=== PATIENT | female | born 1950 | race Caucasian/White ===

== ENCOUNTER → 2016-04-22 | Outpatient (CLI) | payer OTHER | LOC: FIMAGING 10:32 | PROVIDERS: ATTEND Surgery | DX: D35.1 Benign neoplasm of parathyroid gland (principal); E21.0 Primary hyperparathyroidism | CPT/HCPCS: 78070; A9500 ==

== ENCOUNTER 2016-05-09 08:39 | Day surgery (SDC) | payer OTHER ==
[~2016-05-09 08:39] MED LIST: ceFAZolin 2 GM/DEXTROSE 100 ML IV ONE
[2016-05-09] MEDS ORDERED: LIDOCAINE 1% 5 ML SDV ID PRN (09:04)
[2016-05-09] MEDS ORDERED: LR 1,000 ML IV ONE (09:04)
[2016-05-09] MEDS ORDERED: CEFAZOLIN 2 GM/DEXTROSE/100 ML BAG IV ONE (09:13)
[2016-05-09] MEDS ORDERED: THROMBIN (BOVINE) 5,000 UNIT VIAL TP ONE ×3 (09:23→10:50)
[2016-05-09] MEDS ORDERED: BUPIVACAINE 0.5% 30 ML SDV ONE (09:23)
[2016-05-09] MEDS ORDERED: BUPIVACAINE/EPI 0.5% 30 ML SDV ONE ×2 (09:38→09:49)
[2016-05-09 09:40] LABS: CALCIUM 11.1 ng/dL (8.5-10.4); CREATININE 0.8 mg/dL (0.6-1.0)
[2016-05-09] MEDS ORDERED: HYDROCODONE/APAP 5/325 TAB PO PRN (09:49)
[2016-05-09] MEDS ORDERED: ONDANSETRON 4 MG/2 ML VIAL IVP PRN (09:49)
[2016-05-09 09:50] LABS: PTH INTACT NO MINERALS 178.6 pg/ml (10.8-79.4)
[2016-05-09] MEDS ORDERED: MIDAZOLAM 2 MG/2 ML VIAL ONE (09:51)
[2016-05-09] MEDS ORDERED: HYDROmorphONE/DILAUDID 1 MG/ML SYR IVP PRN (09:56)
[2016-05-09] MEDS ORDERED: OXYCODONE/APAP 5/325 TAB PO PRN (09:56)
[2016-05-09] MEDS ORDERED: ACETAMINOPHEN 325 MG TAB PO PRN (09:58)
[2016-05-09] MEDS ORDERED: 1/2 NS 1,000 ML IV SCH (10:00)
[2016-05-09] MEDS ORDERED: fentaNYL 250 MCG/5 ML INJ ONE (10:10)
[2016-05-09] MEDS ORDERED: PROPOFOL 200 MG/20 ML VIAL ONE (10:11)
[2016-05-09] MEDS ORDERED: PROPOFOL/EMULSION 500 MG/50 ML BOTTLE IV ONE (10:11)
[2016-05-09] MEDS ORDERED: ROCURONIUM 50 MG/5 ML VIAL ONE (10:43)
[2016-05-09] MEDS ORDERED: ONDANSETRON 4 MG/2 ML VIAL ONE (10:43)
[2016-05-09] MEDS ORDERED: LIDOCAINE 2% 5 ML SDV ONE (10:43)
[2016-05-09] MEDS ORDERED: DEXAMETHASONE 4 MG/ML VIAL ONE (10:43)
[2016-05-09] MEDS ORDERED: GLYCOPYRROLATE 0.2 MG/1 ML VIAL ONE ×3 (10:44→11:35)
[2016-05-09] MEDS ORDERED: NEOSTIGMINE METHYLSULFATE 5 MG/5 ML SYR ONE (11:35)
--- NOTE | 2016-05-09 11:40 | POSTOPPROG ---
Post Op Note Date of Operation: 05/09/16 Surgeon: Kip Hopkins Paperback Machine Operator: Gilmar Medel PA-C, TRISH Escoto MS, Mariano Rodriguez PA-C Anesthesiologist: Raine Basurto MD Anesthesia: GET(General Endotracheal) Pre-op Diagnosis: parathyroid adenoma, Post-op Diagnosis: same Indication: hyperparathyroidism,Parathryoid adenoma Procedure: Parathyroidectomy with removal of adenoma
[2016-05-09] MEDS ORDERED: fentaNYL 100 MCG/2 ML INJ ONE (12:32)
[2016-05-09 13:07] LABS: CALCIUM 10.7 mg/dL (8.5-10.4)
--- NOTE | 2016-05-11 18:26 | GOP ---
[f rep st] OPERATIVE REPORT DATE OF OPERATION: 05/09/2016 SURGEON: Kip Hopkins MD DUPLICATOR PUNCH SET UP OPERATOR: Terrence Medel, AMELIA. ANESTHESIA: Raine Basurto M.D. PREOPERATIVE DIAGNOSIS: Hyperparathyroidism. POSTOPERATIVE DIAGNOSIS: Hyperparathyroidism. PROCEDURE PERFORMED: Parathyroidectomy. FINDINGS: The patient was found to have a 450 mg adenoma in the left lower pole position. In addition, she had a PTH which went from 178 down to 58 after removal of the adenoma in 5 minutes. DESCRIPTION OF PROCEDURE: The patient was taken to the operating room where she received satisfactory general endotracheal anesthesia by Dr. Basurto. She was placed in the supine position and prepped and draped in the usual sterile fashion. A low collar incision was made. The dissection was carried down through the platysma. Continual platysmal flaps were created to the thyroid cartilage and to the sternal notch. Strap muscles were in the midline and the left side of the thyroid lobe was rotated medially. Careful dissection along the wall of the thyroid lobe revealed a brownish parathyroid adenoma. This was carefully dissected free. Hemostasis was obtained by hemoclips and the specimen was removed and sent to Pathology. In addition, on that side a small normal parathyroid gland was visualized. While we were waiting a quick look at the right side of the thyroid revealed a normal parathyroid in the lower pole position. We did not look any further. Hemostasis was assured. The wound was irrigated. Some topical thrombin was placed in the surgical bed. Strap muscles were approximated with 3-0 Vicryl as were the platysma and subcutaneous tissue. The wound was infiltrated with Marcaine. The skin was closed with 4-0 Monocryl subcuticular stitch. In the interim, the biopsy was returned as consistent with parathyroid adenoma and the PTH level went from 178 to 58 down to 26. She tolerated the procedure well and was taken to the recovery room in good condition. There were no complications. Blood loss was negligible. Copy requested to: Dr. Busby /[id number]/MODL MTDD
== END 2016-05-09 16:00 | disposition home or self-care (01) ==
LOC: FSGY 08:39 → UNDOADMOB 09:49 → F3E 09:49 → FSGY 16:00
PROVIDERS: ATTEND Surgery
PROC: 0GTP0ZZ Resection of Left Inferior Parathyroid Gland, Open Approach (ICD-10-PCS; principal; 2016-05-09 10:45)
DX: E21.3 Hyperparathyroidism, unspecified (principal); D35.1 Benign neoplasm of parathyroid gland; E11.9 Type 2 diabetes mellitus without complications; E03.9 Hypothyroidism, unspecified; M81.0 Age-related osteoporosis without current pathological fracture
CPT/HCPCS: J0690; J1100; J2250; J2405; J2704; J2710; J3010